=== PATIENT | female | born 1955 | race Two or more races ===

== ENCOUNTER 2018-12-10 07:43 | Emergency (ER) | payer MEDICAID ==
[~2018-12-10] VITALS: Ht 157.5 cm; Wt 84.8 kg
[2018-12-10 07:48] VITALS: Ht 157.5 cm; Wt 84.8 kg
[2018-12-10 08:37] VITALS: BP 169/90
== END 2018-12-10 08:44 | disposition home or self-care (01) ==
LOC: ED 07:43
DX: M27.2 Inflammatory conditions of jaws (principal); I10 Essential (primary) hypertension; E11.9 Type 2 diabetes mellitus without complications; E78.00 Pure hypercholesterolemia, unspecified
CPT/HCPCS: J2001; J7512; Q0163